=== PATIENT | male | born 1975 | race Caucasian/White ===

== ENCOUNTER 2024-06-23 06:13 | Day surgery (SDC) | payer BC, SELFPAY ==
[2024-06-23] VITALS (13 sets, daily range): BP systolic 104–136; BP diastolic 67–89; PULSE 41–85; RESP 14–18; TEMP 36.1–36.7; O2SAT 94–99; BMI 23.5
[2024-06-23] MEDS: LACTATED RINGERS 1000 ML 1,000 ML 100 ML IV (06:50)
--- NOTE | 2024-06-23 07:34 | W.PM.H&PU ---
History & Physical Update History & Physical Update H&P Reviewed and patient assessed: No changes noted
[2024-06-23] MEDS: CEFAZOLIN 2 GM INJ IVP (07:47)
--- NOTE | 2024-06-23 07:59 | W.ANESCHARGE ---
Anesthesia Charges Start Date/Time Anesthesia Start Date: 06/23/24 Anesthesia Start Time: 07:35 Stop Date/Time Anesthesia Stop Date: 06/23/24 Anesthesia Stop Time: 09:06
[2024-06-23] MEDS: BUPIVACAINE 0.25% 30 ML INJECTION (08:14)
--- NOTE | 2024-06-23 09:34 | PM.GSPRC ---
Operative Note Date of procedure: 06/23/24 Pre-op diagnosis: 1. Recurrent left inguinal hernia 2. 5 mm umbilical hernia Post-op diagnosis: 1. Recurrent left inguinal hernia 2. 5 mm umbilical hernia Type of Procedure: 1. Laparoscopic Repair of recurrent left inguinal hernia 2. Open primary repair 5 mm umbilical hernia Indications: The patient is a 48-year-old male who developed a left groin bulge while hiking. He previously had a left inguinal hernia repair approximately 25 years prior. He was also noted to have a small reducible umbilical hernia on exam. After discussion, he elected to proceed with inguinal hernia repair as well as umbilical hernia repair. Procedure Description: After discussing the risks and benefits of the procedure, the patient signed informed consent.? The operative site was marked and the patient was brought to the operating room and placed on the operating table in supine position.? Care was taken to pad the patient's pressure points.?? The patient was then intubated by anesthesia.?? The operative site was then prepped and draped in the usual sterile fashion.? A time-out was then performed. A curvilinear incision was made below the umbilicus. Dissection was carried down to subcutaneous tissue until the anterior rectus fascia was encountered. This was incised off the midline on the left. The rectus muscle fibers were then retracted exposing the posterior fascia. A port with a dissecting balloon was then introduced into the pre-preperitoneal space. This was inflated under direct vision. The balloon was deflated, removed, and a 10 mm working port was placed. The space was insufflated and a 10 mm 30-degree scope was then advanced into the space. Two 5 mm ports were placed in the midline under direct vision. Dissection began on the left side. Adriano's ligament and the pubic bone were exposed medially. Following this, dissection was carried out laterally. An indirect defect was noted. The sac was dissected free from the cord structures using a combination of sharp and blunt dissection. There was some scarring consistent with prior repair, however no visible mesh and the hernia sac was able to be dissected free of the cord structures without significant trauma. Once the sac was completely reduced, a piece of Bard 3DMax mesh for the appropriate side was placed into the abdomen. This was positioned with the marker pointed medially. A Tacker was used to attach the mesh medially at Adriano's ligament and 1 tack laterally with care to avoid the epigastric vessels and stay above the inguinal ligament. Once this was completed the sac was placed on top of the mesh and the preperitoneal space desufflated under direct vision to ensure the mesh laid flat. 10 mL of 0.5% Marcaine were instilled into the preperitoneal space through a port. The ports were removed. Attention was then turned to the umbilical hernia repair. The umbilicus was dissected off of the hernia sac. The hernia sac was entered. There was a small amount of omental fat contained within. This was reduced. The fascial opening measured approximately 5 mm. This was closed with interrupted 0 Nurolon suture in a [id number] fashion. The anterior rectus fascia was closed with 3-0 Vicryl suture as well as 2 additional 0 Nurolon sutures. The fascia from the infraumbilical port was closed with 0 Vicryl. The skin incisions were closed with absorbable subcuticular suture. Sterile dressings were then applied. ? The patient was then woken and transported to the recovery area in stable condition. ? The patient tolerated the procedure well. Findings: 1. Recurrent indirect left inguinal hernia 2. Small fat containing umbilical hernia Implants: Large Bard 3DMax mesh Anesthesia: GETA Surgeon: Janet Singh MD Condition: stable Disposition: PACU
[2024-06-23] MEDS: ACETAMINOPHEN 325 MG TABLET 650 MG PO (10:34)
--- NOTE | 2024-06-23 12:24 | W.ANESCHARGE ---
Anesthesia Charges Start Date/Time Anesthesia Start Date: 06/23/24 Anesthesia Start Time: 07:35 Stop Date/Time Anesthesia Stop Date: 06/23/24 Anesthesia Stop Time: 09:06
== END 2024-06-23 10:50 | disposition home or self-care (01) ==
PROVIDERS: PCP Family Medicine; Visit Provider Surgery
PROC: (CPT 49650; principal; 2024-06-23 07:30)
DX: K40.91 Unilateral inguinal hernia, without obstruction or gangrene, recurrent (principal); K42.9 Umbilical hernia without obstruction or gangrene
CPT/HCPCS: 49651; 49591; 00840; 00860; A9270; C1781; J0330; J0665; J0690; J2704; J2710; J3010; J7120